=== PATIENT | female | born 2000 | race Hispanic/Latino ===

== ENCOUNTER 2023-12-17 16:26 | Emergency (ER) | payer OTHER ==
[~2023-12-17] VITALS: Ht 160 cm; Wt 81.2 kg
[~2023-12-17 16:26] MED LIST: ACETAMINOPHEN 325 MG TAB ONE; CEFDINIR300 MG PO; CEFTRIAXONE 2 GM VIAL ONE; DICYCLOMINE HCL20 MG PO; Morphine 4mg INJECTION 4 MG/ML INJ ONE; ONDANSETRON HCL INJ 2MG/ML 2ML 2 MG/ML VIAL ONE; ONDANSETRON ODT4 MG PO; PHENERGAN SUPP25 MG PR; SODIUM CHLORIDE 0.9% 1000 ML BAG ONE
[2023-12-17] MEDS ORDERED: KETOROLAC TROMETHAMINE 30 MG/ML VIAL IV STA ×2 (17:22→20:45)
[2023-12-17 18:16] LABS: BASOPHILS % 0.5 % (0.0-1.0); EOSINOPHILS # (AUTO) 0.1 (0.0-0.4); EOSINOPHILS % 1.4 % (0.0-6.0); HEMOGLOBIN 12.3 g/dL (12.0-16.0); LYMPHOCYTES # (AUTO) 2.2 (1.0-3.2); LYMPHOCYTES % 33.9 % (18.0-39.1); MEAN CORPUSCULAR HEMOGLOBIN 27.1 pg (28-32); MEAN CORPUSCULAR HGB CONC 32.4 g/dL (31-35); MEAN CORPUSCULAR VOLUME 83.7 fL (81-99); MONOCYTES # (AUTO) 0.4 (0.2-0.8); MONOCYTES % 5.5 % (4.4-11.3); NEUTROPHILS # (AUTO) 3.8 (2.1-6.9); NEUTROPHILS % 58.4 % (38.7-80.0); PLATELET COUNT 361 x10e3/uL (140-360); RED BLOOD COUNT 4.54 x10e6/uL (3.6-5.1); RED CELL DISTRIBUTION WIDTH 14.1 % (11.7-14.4); WHITE BLOOD COUNT 6.51 x10e3/uL (4.8-10.8)
[2023-12-17 18:32] LABS: ALANINE AMINOTRANSFERASE 23 IU/L (0-55); ALBUMIN/GLOBULIN RATIO 1.3 (0.8-2.0); ALKALINE PHOSPHATASE 91 IU/L (40-150); ANION GAP 15.2 mmol/L (8-16); BILIRUBIN,TOTAL 0.2 mg/dL (0.2-1.2); BLOOD UREA NITROGEN 9 mg/dL (7-26); BUN/CREATININE RATIO 12 (6-25); CALCIUM 9.1 mg/dL (8.4-10.2); CARBON DIOXIDE 23 mmol/L (22-29); CHLORIDE 103 mmol/L (98-107); CREATININE, SERUM 0.76 mg/dL (0.57-1.11); EST GLOMERULAR FILTRATION RATE 113 ML/MIN (>=60); GLUCOSE 83 mg/dL (74-118); LIPASE 15 U/L (8-78); POTASSIUM 4.2 mmol/L (3.5-5.1); SODIUM 137 mmol/L (136-145); TOTAL PROTEIN 7.2 g/dL (6.5-8.1)
[2023-12-17] MEDS: ONDANSETRON HCL INJ 2MG/ML 2ML 2 MG/ML VIAL IV STA (18:56)
[2023-12-17] MEDS: SODIUM CHLORIDE 0.9% 1000ML 1,000 ML IV STA ×2 (18:56→20:37)
[2023-12-17] MEDS: Morphine 4mg INJECTION 4 MG/ML INJ IV STA (18:56)
[2023-12-17] MEDS ORDERED: ONDANSETRON HCL INJ 2MG/ML 2ML 2 MG/ML VIAL ONE (18:58)
[2023-12-17] MEDS ORDERED: SODIUM CHLORIDE 0.9% 1000ML 1,000 ML ONE ×2 (18:58→20:35)
[2023-12-17] MEDS ORDERED: Morphine 4mg INJECTION 4 MG/ML INJ ONE (18:58)
[2023-12-17 20:19] LABS: CLARITY,URINE SL CLOUDY (CLEAR); COLOR,URINE YELLOW (YELLOW); GLUCOSE, URINE NEGATIVE (NEGATIVE); LEUKOCYTE ESTERASE ,URINE 1+ (NEGATIVE); NITRITE,URINE NEGATIVE (NEGATIVE); PH,URINE 6.5 (5 - 7); PROTEIN,URINE DIPSTICK NEGATIVE (NEGATIVE)
[2023-12-17 20:20] LABS: BILIRUBIN,URINE NEGATIVE (NEGATIVE); KETONES,URINE NEGATIVE (NEGATIVE); URINE UROBILINOGEN 0.2 mg/dL (0.2 - 1)
[2023-12-17 20:21] LABS: PREGNANCY TEST, URINE NEGATIVE (NEGATIVE)
[2023-12-17] MEDS ORDERED: CEFTRIAXONE 2 GM VIAL ONE (20:35)
[2023-12-17] MEDS ORDERED: SODIUM CHLORIDE 0.9% 100 ML ONE (20:35)
[2023-12-17 20:36] LABS: BACTERIA,URINE MANY /HPF; EPITHELIAL CELLS,URINE MANY /LPF; WBC,URINE (MAN) 21-50 /HPF (0-5)
[2023-12-17] MEDS: CEFTRIAXONE 2 GM in SODIUM CHLORIDE 0.9% 100 ML IV STA (20:38)
[2023-12-17] MEDS: ACETAMINOPHEN 325 MG TAB PO STA (20:54)
[2023-12-17] MEDS ORDERED: ACETAMINOPHEN 325 MG TAB ONE (20:55)
[2023-12-17 21:23] VITALS: BP 126/70; PULSE 88; RESP 19; TEMP 98.3; O2SAT 100
[2023-12-17] MEDS ORDERED: BACTRIM DS TAB1 EACH PO (21:25)
[2023-12-17] MEDS ORDERED: PROMETHAZINE HC25 M1 PO (21:26)
== END 2023-12-17 21:41 | disposition home or self-care (01) ==
LOC: ER 16:29
DX: R30.0 Dysuria (principal); N39.0 Urinary tract infection, site not specified; R10.30 Lower abdominal pain, unspecified; R53.1 Weakness; I10 Essential (primary) hypertension; E27.1 Primary adrenocortical insufficiency; R94.31 Abnormal electrocardiogram [ECG] [EKG]; Z87.442 Personal history of urinary calculi
CPT/HCPCS: 36415; 74176; 80053; 81001; 81025; 83690; 83735; 84702; 85025; 93005; 99284; J0696; J2270; J2405; J7030; J7050

== ENCOUNTER 2023-12-22 17:30 | Emergency (ER) | payer OTHER ==
[~2023-12-22] VITALS: Ht 160 cm; Wt 81.2 kg
[~2023-12-22 17:30] MED LIST changes: -ACETAMINOPHEN 325 MG TAB ONE; +BACTRIM DS TAB1 EACH PO; -CEFTRIAXONE 2 GM VIAL ONE; -Morphine 4mg INJECTION 4 MG/ML INJ ONE; -ONDANSETRON HCL INJ 2MG/ML 2ML 2 MG/ML VIAL ONE; +PROMETHAZINE HC25 M1 PO; -SODIUM CHLORIDE 0.9% 1000 ML BAG ONE
[2023-12-22] MEDS ORDERED: ONDANSETRON HCL INJ 2MG/ML 2ML 2 MG/ML VIAL IV STA (18:42)
[2023-12-22] MEDS ORDERED: Morphine 4mg INJECTION 4 MG/ML INJ IV ONE (18:45)
[2023-12-22 18:57] LABS: BASOPHILS % 0.5 % (0.0-1.0); EOSINOPHILS # (AUTO) 0.1 (0.0-0.4); EOSINOPHILS % 1.8 % (0.0-6.0); HEMATOCRIT 39.2 % (34.2-44.1); HEMOGLOBIN 13.2 g/dL (12.0-16.0); LYMPHOCYTES # (AUTO) 2.7 (1.0-3.2); LYMPHOCYTES % 36.6 % (18.0-39.1); MEAN CORPUSCULAR HEMOGLOBIN 27.4 pg (28-32); MEAN CORPUSCULAR HGB CONC 33.7 g/dL (31-35); MEAN CORPUSCULAR VOLUME 81.5 fL (81-99); MONOCYTES # (AUTO) 0.4 (0.2-0.8); MONOCYTES % 4.8 % (4.4-11.3); NEUTROPHILS # (AUTO) 4.1 (2.1-6.9); PLATELET COUNT 374 x10e3/uL (140-360); RED BLOOD COUNT 4.81 x10e6/uL (3.6-5.1); RED CELL DISTRIBUTION WIDTH 13.8 % (11.7-14.4); WHITE BLOOD COUNT 7.35 x10e3/uL (4.8-10.8)
[2023-12-22] MEDS: SODIUM CHLORIDE 0.9% 1000ML 1,000 ML IV ONE (19:05)
[2023-12-22] MEDS: PANTOPRAZOLE SOD 40 MG TABEC PO ONE (19:06)
[2023-12-22] MEDS: DICYCLOMINE HCL 20 MG/2 ML VIAL IM ONE (19:06)
[2023-12-22] MEDS: Morphine 4mg INJECTION 4 MG/ML INJ IM ONE (19:06)
[2023-12-22] MEDS: ONDANSETRON HCL 4 MG ORAL DISINTEGRATING TAB PO ONE (19:06)
[2023-12-22 19:13] LABS: ALBUMIN 4.4 g/dL (3.5-5.0); ALBUMIN/GLOBULIN RATIO 1.2 (0.8-2.0); ANION GAP 16.1 mmol/L (8-16); BILIRUBIN,TOTAL 0.3 mg/dL (0.2-1.2); CREATININE, SERUM 0.79 mg/dL (0.57-1.11); POTASSIUM 4.1 mmol/L (3.5-5.1)
[2023-12-22 19:17] LABS: CLARITY,URINE SL CLOUDY (CLEAR); COLOR,URINE YELLOW (YELLOW)
[2023-12-22 19:18] LABS: PREGNANCY TEST, URINE NEGATIVE (NEGATIVE)
[2023-12-22 19:32] LABS: BILIRUBIN,URINE NEGATIVE (NEGATIVE); GLUCOSE, URINE NEGATIVE (NEGATIVE); KETONES,URINE NEGATIVE (NEGATIVE); LEUKOCYTE ESTERASE ,URINE TRACE (NEGATIVE); NITRITE,URINE NEGATIVE (NEGATIVE); PH,URINE 7 (5 - 7); PROTEIN,URINE DIPSTICK NEGATIVE (NEGATIVE); URINE UROBILINOGEN 0.2 mg/dL (0.2 - 1)
[2023-12-22 19:33] LABS: BACTERIA,URINE FEW /HPF; EPITHELIAL CELLS,URINE MODERATE /LPF; RBC,URINE >50 /HPF (0-5); TRANSITIONAL EPI CELLS,URINE FEW
[2023-12-22] MEDS ORDERED: CEFDINIR300 MG PO (19:43)
[2023-12-22 19:51] VITALS: BP 136/76; PULSE 93; RESP 19; TEMP 98.5; O2SAT 97
== END 2023-12-22 19:58 | disposition home or self-care (01) ==
LOC: ER 17:48
DX: R10.11 Right upper quadrant pain (principal); N39.0 Urinary tract infection, site not specified; I10 Essential (primary) hypertension; F41.9 Anxiety disorder, unspecified; E27.1 Primary adrenocortical insufficiency; Z87.442 Personal history of urinary calculi
CPT/HCPCS: 36415; 80053; 81001; 81025; 83690; 85025; 99283; J0500; J2270; Q0162; S0164